=== PATIENT | male | born 1975 | race Caucasian/White ===

== ENCOUNTER 2016-05-01 04:28 | Emergency (ER) | payer OTHER ==
[2016-05-01 05:32] VITALS: BMI 36.6
[2016-05-01] MEDS ORDERED: FAMOTIDINE 20 MG/50 ML IVPB 50 ML IVPB ONE ×2 (05:56→06:02)
[2016-05-01] MEDS ORDERED: SODIUM CHLORIDE 0.9% 500 ML INFUS.BAG IV ONE ×2 (05:56→07:09)
--- NOTE | 2016-05-01 05:56 | PDOC ---
[id number] No Limitations - History of Present Illness Initial Comments: 05/01/16 05:56 The patient is a 40 year old male with no PMHx who presents to the ED with burning sensation in mid sternum and upper abdominal pain since yesterday. The patient reports the pain is intermittent, coming every 20 minutes and lasting a few minutes. He denies the pain radiating anywhere. He took something for acid relief, with some resolving symptoms. He also reports a nonproductive cough. He reports drinking a bottle of whiskey daily. He denies fever, chills, nausea, vomiting, diarrhea. He denies SOB, palpitations. <Emma Robbins - Last Filed: 05/01/16 05:56> <Siria Gibson - Last Filed: 05/02/16 15:46> - General Chief Complaint: Chest Pain Stated Complaint: CHEST PAIN, DIZZINESS Time Seen by Provider: 05/01/16 05:43 Past History <Emma Robbins - Last Filed: 05/01/16 05:56> - Psycho/Social/Smoking Cessation Hx Anxiety: No Suicidal Ideation: No Smoking History: Never smoked Information on smoking cessation initiated: No Hx Alcohol Use: Yes (1 bottle of whiskey everyday) Drug/Substance Use Hx: No Substance Use Type: Alcohol <Siria Gibson - Last Filed: 05/02/16 15:46> - Past Medical History Allergies/Adverse Reactions: Allergies Allergy/AdvReac Type Severity Reaction Status Date / Time No Known Allergies Allergy Verified 05/01/16 05:32 Home Medications: Ambulatory Orders Metformin HCl [Glucophage] 500 mg PO BID #60 tablet 05/01/16 Review of Systems - Review of Systems Comments:: 05/01/16 05:57 GENERAL/CONSTITUTIONAL: No fever or chills. No weakness. HEAD, EYES, EARS, NOSE AND THROAT: No change in vision. No ear pain or discharge. No sore throat. CARDIOVASCULAR: + mid sternal chest pain, No shortness of breath. RESPIRATORY: +nonproductive cough. No wheezing, or hemoptysis. GASTROINTESTINAL: +upper abdominal pain. No nausea, vomiting, diarrhea or constipation. GENITOURINARY: No dysuria, frequency, or change in urination. MUSCULOSKELETAL: No joint or muscle swelling or pain. No neck or back pain. SKIN: No rash NEUROLOGIC: No headache, vertigo, loss of consciousness, or change in strength/ sensation. ENDOCRINE: No increased thirst. No abnormal weight change. HEMATOLOGIC/LYMPHATIC: No anemia, easy bleeding, or history of blood clots. ALLERGIC/IMMUNOLOGIC: No hives or skin allergy. <Emma Robbins - Last Filed: 05/01/16 05:56> *Physical Exam - Vital Signs Last Vital Signs Temp Pulse Resp BP Pulse Ox 98.8 F 111 H 18 158/99 100 05/01/16 05:30 05/01/16 05:30 05/01/16 05:30 05/01/16 05:30 05/01/16 05:30 - Physical Exam Comments: 05/01/16 05:57 GENERAL: Awake, alert, and fully oriented, in no acute distress HEAD: No signs of trauma EYES: PERRLA, EOMI, sclera anicteric, conjunctiva clear ENT: Auricles normal inspection, hearing grossly normal, nares patent, oropharynx clear without exudates. Moist mucosa NECK: Normal ROM, supple, no lymphadenopathy, JVD, or masses LUNGS: Breath sounds equal, clear to auscultation bilaterally. No wheezes, and no crackles HEART: Regular rate and rhythm, normal S1 and S2, no murmurs, rubs or gallops ABDOMEN: Soft, nontender, normoactive bowel sounds. No guarding, no rebound. No masses EXTREMITIES: Normal range of motion, no edema. No clubbing or cyanosis. No cords, erythema, or tenderness NEUROLOGICAL: Cranial nerves II through XII grossly intact. Normal speech, normal gait SKIN: Warm, Dry, normal turgor, no rashes or lesions noted. <Emma Robbins - Last Filed: 05/01/16 05:56> - Vital Signs Last Vital Signs Temp Pulse Resp BP Pulse Ox 98.8 F 111 H 18 158/99 100 05/01/16 05:30 05/01/16 05:30 05/01/16 05:30 05/01/16 05:30 05/01/16 05:30 <Siria Gibson - Last Filed: 05/02/16 15:46> ED Treatment Course - LABORATORY CBC & Chemistry Diagram: 05/01/16 05:30 05/01/16 05:30 <Emma Robbins - Last Filed: 05/01/16 05:56> - LABORATORY CBC & Chemistry Diagram: 05/01/16 06:30 05/01/16 05:30 <Siria Gibson - Last Filed: 05/02/16 15:46> Medical Decision Making - Medical Decision Making 05/01/16 07:10 Pt came with CP that began this AM. It feels like a burning sensation mid- chest. He drinks heavily every day, a bottle of whiskey. Alcohol level in the ER is <5. Labs are normal, 1st cardiac enzyme is normal; lipase is normal. EKG shows tachycardia. Pt has diabetes. He is semi-aware of the DM, but takes no meds, and he and are indenial of the diagnosis. Pt hydrated with a L of saline; still tachycardic. He will receive another liter of NSS and 4U regular insulin push. Pt will require 2nd cardiac enzyme and a CXR is pending. He will be signed out to the day ER doc. <Siria Gibson - Last Filed: 05/02/16 15:46> *DC/Admit/Observation/Transfer - Attestations Scribe Attestion: 05/01/16 05:57 Documentation prepared by Emma Robbins, acting as medical office assistant instructor for Siria Gibson MD. <Emma Robbnis - Last Filed: 05/01/16 05:56> <Siria Gibson - Last Filed: 05/02/16 15:46> Diagnosis at time of Disposition: Chest pain, Diabetes mellitus, new onset - Discharge Dispostion Disposition: HOME Condition at time of disposition: Stable - Prescriptions Prescriptions: Metformin HCl [Glucophage] 500 mg PO BID #60 tablet - Patient Instructions Printed Discharge Instructions: DI for Atypical Chest Pain Additional Instructions: You have been evaluated for chest pain in the emergency department. The tests that we perform for your heart are negative however you still need to follow-up with your primary care physician within one week. You glucose is also elevated. You're given insulin and IV fluid for hydration. He will need to start taking Glucophage 500 mg 1 tablet twice per day in order to get your glucose under control. Once again, you need to follow-up with your primary care physician within one week for glucose monitoring, diet consultation and education and further diabetes care. Please return to the emergency department if your symptoms persist, worsen, or new symptoms arise.
[2016-05-01 06:05] LABS: ALBUMIN 4.2 g/dl (3.4-5.0); ANION GAP 12 (8-16); BILIRUBIN,TOTAL 0.5 mg/dL (0.2-1.0); CALCIUM 8.9 mg/dL (8.5-10.1); CO2 26 mmol/L (21-32); CREATININE 0.8 mg/dL (0.7-1.3); GLUCOSE,RANDOM 295 mg/dL (74-106); SGOT/AST 35 U/L (15-37); SGPT/ALT 63 U/L (12-78); TOT PROT 7.9 g/dl (6.4-8.2)
[2016-05-01 06:07] LABS: ALK PHOS 94 U/L (45-117); TROPONIN I < 0.02 ng/ml (0.00-0.05)
[2016-05-01 06:37] LABS: BASOPHIL 0.7 % (0-2.0); EOSINOPHIL 1.5 % (0-4.5); MCH 33.8 pg (25.7-33.7); MCHC 35.3 g/dl (32.0-35.9); MEAN CELL VOLUME 95.9 fl (80-96); MEAN PLT VOLUME 9.4 fl (7.5-11.1); NEUTROPHILS 61.6 % (42.8-82.8); PLATELET COUNT 175 K/MM3 (134-434); RDW 12.9 % (11.9-15.9); WHITE BLOOD COUNT 6.3 K/mm3 (4.0-10.0)
[2016-05-01] MEDS ORDERED: INSULIN REGULAR HUMAN 100 UNITS/ML *VIAL IVPUSH ONE (07:10)
[2016-05-01 07:41] VITALS: TEMP 98.2
[2016-05-01] MEDS ORDERED: INSULIN REGULAR HUMAN 100 UNITS/ML *VIAL ONE (08:00)
[2016-05-01 08:29] VITALS: BP 127/93; PULSE 96
[2016-05-01 11:56] LABS: TROPONIN I < 0.02 ng/ml (0.00-0.05)
--- NOTE | 2016-05-01 13:01 | PDOC ---
*Physical Exam - Vital Signs Last Vital Signs Temp Pulse Resp BP Pulse Ox 98.2 F 96 H 18 127/93 97 05/01/16 07:40 05/01/16 08:29 05/01/16 07:40 05/01/16 08:29 05/01/16 07:40 ED Treatment Course - LABORATORY CBC & Chemistry Diagram: 05/01/16 06:30 05/01/16 05:30 - ADDITIONAL ORDERS Additional order review: Laboratory Results 05/01/16 05/01/16 05/01/16 11:48 11:12 07:17 Sodium Potassium Chloride Carbon Dioxide Anion Gap BUN Creatinine Creat Clearance w eGFR POC Glucometer 199.93343 107.08779 Random Glucose Calcium Total Bilirubin AST ALT Alkaline Phosphatase Creatine Kinase 103 Troponin I < 0.02 Total Protein Albumin Lipase Alcohol, Quantitative 05/01/16 05/01/16 05/01/16 05:34 05:30 05:30 Sodium 135 L Potassium 4.2 Chloride 97 L Carbon Dioxide 26 Anion Gap 12 BUN 13 Creatinine 0.8 Creat Clearance w eGFR > 60 POC Glucometer Random Glucose 295 H Calcium 8.9 Total Bilirubin 0.5 AST 35 ALT 63 Alkaline Phosphatase 94 Creatine Kinase 125 Troponin I < 0.02 Total Protein 7.9 Albumin 4.2 Lipase 365 Alcohol, Quantitative < 5.0 05/01/16 05/01/16 05/01/16 11:48 07:17 06:30 RBC 4.84 MCV 95.9 MCHC 35.3 RDW 12.9 MPV 9.4 Neutrophils % 61.6 Lymphocytes % 26.4 Monocytes % 9.8 Eosinophils % 1.5 Basophils % 0.7 POC Glucometer 199.10443 107.43489 05/01/16 05:30 RBC Cancelled MCV Cancelled MCHC Cancelled RDW Cancelled MPV Cancelled Neutrophils % Cancelled Lymphocytes % Cancelled Monocytes % Cancelled Eosinophils % Cancelled Basophils % Cancelled POC Glucometer - Medications Given in the ED: ED Medications Discontinued Medications Generic Name Dose Route Start Last Admin Trade Name Freq PRN Reason Stop Dose Admin Famotidine/Sodium Chloride 50 mls @ 100 mls/hr 05/01/16 05:56 05/01/16 06:14 Pepcid 20 Mg Premixed Ivpb - IVPB 05/01/16 06:25 100 mls/hr ONCE ONE Administration Insulin Human Regular 4 units 05/01/16 07:10 05/01/16 08:03 Novolin R Vial *Ivpush / Er / Icu Only* IVPUSH 05/01/16 07:11 4 units ONCE ONE Administration Sodium Chloride 1,000 ml 05/01/16 05:56 05/01/16 06:14 Normal Saline - IV 05/01/16 05:57 1,000 ml ONCE ONE Administration Sodium Chloride 1,000 ml 05/01/16 07:09 05/01/16 08:03 Normal Saline - IV 05/01/16 07:10 1,000 ml ONCE ONE Administration Medical Decision Making - Medical Decision Making 05/01/16 12:58 This patient was endorsed to me at [address] Wong pending second set of cardiac enzymes and glycemic control. His cardiac enzymes were negative and his last glucose was 199. I've discussed the patient's diagnosis of diabetes with him and have advised him that I will be starting him on Glucotrol 5 500 mg twice daily and that he should follow-up with her primary care physician within one week. I've also advised the patient to return to the emergency department if he has recurrence of his symptoms the symptoms are any persistent symptoms. *DC/Admit/Observation/Transfer Diagnosis at time of Disposition: Chest pain, Diabetes mellitus, new onset - Discharge Dispostion Disposition: HOME Condition at time of disposition: Stable Admit: No - Prescriptions Prescriptions: Metformin HCl [Glucophage] 500 mg PO BID #60 tablet - Patient Instructions Printed Discharge Instructions: DI for Atypical Chest Pain Additional Instructions: You have been evaluated for chest pain in the emergency department. The tests that we perform for your heart are negative however you still need to follow-up with your primary care physician within one week. You glucose is also elevated. You're given insulin and IV fluid for hydration. He will need to start taking Glucophage 500 mg 1 tablet twice per day in order to get your glucose under control. Once again, you need to follow-up with your primary care physician within one week for glucose monitoring, diet consultation and education and further diabetes care. Please return to the emergency department if your symptoms persist, worsen, or new symptoms arise.
--- NOTE | 2016-05-01 16:13 | EKG ---
Test Reason : Blood Pressure : / mmHG Vent. Rate : 119 BPM Atrial Rate : 119 BPM P-R Int : 162 ms QRS Dur : 098 ms QT Int : 336 ms P-R-T Axes : 069 -17 007 degrees QTc Int : 472 ms SINUS TACHYCARDIA CANNOT RULE OUT ANTERIOR INFARCT , AGE UNDETERMINED ABNORMAL ECG WHEN COMPARED WITH ECG OF 18-JUL-2009 13:31, NO SIGNIFICANT CHANGE WAS FOUND Confirmed by CELE MAYS MD ([id number]) on 05/01/2016 4:13:26 PM Referred By: Confirmed By:CELE MAYS MD
== END 2016-05-01 13:29 | disposition home or self-care (01) ==
LOC: JER 04:28
PROC: 3E033GC Introduction of Other Therapeutic Substance into Peripheral Vein, Percutaneous Approach (ICD-10-PCS; principal; 2016-05-01)
PROC: 3E033VG Introduction of Insulin into Peripheral Vein, Percutaneous Approach (ICD-10-PCS; 2016-05-01)
DX: R07.89 Other chest pain (principal); E11.9 Type 2 diabetes mellitus without complications
CPT/HCPCS: 36415; 71020-TC; 80053; 80307; 82550; 83690; 84484; 85025; 93005; 93010; 99284-25

== ENCOUNTER 2016-07-30 14:37 | Emergency (ER) | payer OTHER ==
[2016-07-30 14:43] VITALS: BMI 35.2
--- NOTE | 2016-07-30 15:00 | PDOC ---
History of Present Illness - General History Source: Patient Exam Limitations: No Limitations - History of Present Illness Initial Comments: 07/30/16 16:25 The patient is a 41-year-old man, accompanied by his , with a past medical history of diabetes mellitus who presents to the emergency department via walk- in for further evaluation of shortness of breath for the past week. Vitals upon ER arrival are notable for tachycardia 129 bpm, febrile to 101.6, RR or 20, BP of 150/91 and an oxygen saturation of 98% on room air. Patient states that for the past week he has been feeling short of breath due to a short throat. He also reports a fever of 102 at home. His gave him 1 bottle of Children's Motrin with no relief. Patient admits he has had enlarged tonsils for the past few years and it has affected his shortness of breath throughout the years. Patient went to an urgent care center and had a strep culture taken. No known results. He has already been started on antibiotics. No other complaints. He denies chills generalized weakness, rhinorrhea, nasal congestion, ear pain, cough, palpitations, headache, abdominal pain, nausea, vomiting, diarrhea. <Marisela Adams - Last Filed: 07/30/16 17:08> <Tayo Mae - Last Filed: 07/30/16 17:46> - General Chief Complaint: Respiratory Stated Complaint: CHEST PAIN/ DIZZY Time Seen by Provider: 07/30/16 14:59 Past History <Marisela Adams - Last Filed: 07/30/16 17:08> - Past Medical History Diabetes: Yes - Psycho/Social/Smoking Cessation Hx Anxiety: No Suicidal Ideation: No Smoking History: Never smoked Hx Alcohol Use: Yes Drug/Substance Use Hx: No Substance Use Type: Alcohol <Tayo Mae - Last Filed: 07/30/16 17:46> - Past Medical History Allergies/Adverse Reactions: Allergies Allergy/AdvReac Type Severity Reaction Status Date / Time No Known Allergies Allergy Verified 07/30/16 14:40 Home Medications: Ambulatory Orders Metformin HCl [Glucophage] 500 mg PO BID #60 tablet 05/01/16 Azithromycin [Zithromax -] 250 mg PO DAILY #10 tab 07/30/16 Review of Systems - Review of Systems Able to Perform ROS?: Yes Comments:: 07/30/16 16:25 GENERAL/CONSTITUTIONAL: No fever or chills. No weakness. HEAD, EYES, EARS, NOSE AND THROAT: Yes: Sore throat. No change in vision. No ear pain or discharge. CARDIOVASCULAR: Yes: Shortness of Breath. No chest pain. RESPIRATORY: No cough, wheezing, or hemoptysis. GASTROINTESTINAL: No nausea, vomiting, diarrhea or constipation. GENITOURINARY: No dysuria, frequency, or change in urination. MUSCULOSKELETAL: No joint or muscle swelling or pain. No neck or back pain. SKIN: No rash NEUROLOGIC: No headache, vertigo, loss of consciousness, or change in strength/ sensation. ENDOCRINE: No increased thirst. No abnormal weight change. HEMATOLOGIC/LYMPHATIC: No anemia, easy bleeding, or history of blood clots. ALLERGIC/IMMUNOLOGIC: No hives or skin allergy. <Marisela Adams - Last Filed: 07/30/16 17:08> *Physical Exam - Vital Signs Last Vital Signs Temp Pulse Resp BP Pulse Ox 101.6 F H 129 H 20 150/91 98 07/30/16 14:39 07/30/16 14:39 07/30/16 14:39 07/30/16 14:39 07/30/16 14:39 - Physical Exam Comments: 07/30/16 16:26 GENERAL: Awake, alert, and fully oriented, in no acute distress HEAD: No signs of trauma EYES: PERRLA, EOMI, sclera anicteric, conjunctiva clear ENT: Auricles normal inspection, hearing grossly normal, nares patent, oropharynx clear without exudates. Moist mucosa NECK: Normal ROM, supple, no lymphadenopathy, JVD, or masses LUNGS: Breath sounds equal, clear to auscultation bilaterally. No wheezes, and no crackles HEART: Regular rate and rhythm, normal S1 and S2, no murmurs, rubs or gallops ABDOMEN: Soft, nontender, normoactive bowel sounds. No guarding, no rebound. No masses EXTREMITIES: Normal range of motion, no edema. No clubbing or cyanosis. No cords, erythema, or tenderness NEUROLOGICAL: Cranial nerves II through XII grossly intact. Normal speech, normal gait. <Marisela Adams - Last Filed: 07/30/16 17:08> - Vital Signs Last Vital Signs Temp Pulse Resp BP Pulse Ox 101.6 F H 129 H 20 150/91 98 07/30/16 14:39 07/30/16 14:39 07/30/16 14:39 07/30/16 14:39 07/30/16 14:39 <Tayo Mae - Last Filed: 07/30/16 17:46> ED Treatment Course - LABORATORY CBC & Chemistry Diagram: 07/30/16 15:50 07/30/16 15:50 - ADDITIONAL ORDERS Additional order review: Laboratory Results 07/30/16 15:50 INR 1.35 H 07/30/16 15:50 RBC 4.86 MCV 97.8 H MCHC 34.2 RDW 12.7 MPV 8.8 Neutrophils % 84.8 H D Lymphocytes % 6.3 L D Monocytes % 8.5 Eosinophils % 0.0 D Basophils % 0.4 - Medications Given in the ED: ED Medications Discontinued Medications Generic Name Dose Route Start Last Admin Trade Name Freq PRN Reason Stop Dose Admin Acetaminophen 1,000 mg 07/30/16 15:32 07/30/16 15:45 Ofirmev Injection - IVPB 07/30/16 15:33 1,000 mg ONCE ONE Administration Ondansetron HCl 8 mg 07/30/16 15:32 07/30/16 15:45 Zofran Injection IVPB 07/30/16 15:33 8 mg ONCE ONE Administration <Marisela Adams - Last Filed: 07/30/16 17:08> - LABORATORY CBC & Chemistry Diagram: 07/30/16 15:50 07/30/16 15:50 <Tayo Mae - Last Filed: 07/30/16 17:46> Medical Decision Making - Medical Decision Making 07/30/16 16:26 The patient is a 41-year-old man, accompanied by his , with a past medical history of diabetes mellitus who presents to the emergency department via walk- in for further evaluation of shortness of breath for the past week. Vitals upon ER arrival are notable for tachycardia 129 bpm, febrile to 101.6, RR or 20, BP of 150/91 and an oxygen saturation of 98% on room air. Patient states that for the past week he has been feeling short of breath due to a short throat. He also reports a fever of 102 at home. His gave him 1 bottle of Children's Motrin with no relief. Patient admits he has had enlarged tonsils for the past few years and it has affected his shortness of breath throughout the years. No other complaints. <Marisela Adams - Last Filed: 07/30/16 17:08> *DC/Admit/Observation/Transfer - Attestations Scribe Attestion: 07/30/16 16:26 Documentation prepared by Marisela Adams, acting as medical investigator for Tayo Mae DO. <Marisela Adams - Last Filed: 07/30/16 17:08> - Discharge Dispostion Admit: No - Attestations Physician Attestion: 07/30/16 15:00 I, Dr. Tayo Mae, attest that this document has been prepared under my direction and personally reviewed by me in its entirety. I further attest, that it accurately reflects all work, treatment, procedures and medical decision -making performed by me. <Tayo Mae - Last Filed: 07/30/16 17:46> Diagnosis at time of Disposition: Tonsillitis - Discharge Dispostion Disposition: HOME Condition at time of disposition: Good - Prescriptions Prescriptions: Azithromycin [Zithromax -] 250 mg PO DAILY #10 tab - Referrals Referrals: STAFF,NOT ON [Primary Care Provider] - - Patient Instructions Printed Discharge Instructions: DI for Pharyngitis/Tonsillopharyngitis -- Adult Additional Instructions: Yunior- It was a pleasure to care for you. Take tylenol and motrin for fever, Gargle with salt water. Return to us if you have any problems. Best- Dr. Tayo Mea
[2016-07-30] MEDS ORDERED: ONDANSETRON 4 MG/2 ML VIAL IVPB ONE (15:32)
[2016-07-30] MEDS ORDERED: SODIUM CHLORIDE 2,000 ML IV STA (15:32)
[2016-07-30] MEDS ORDERED: ACETAMINOPHEN 1000 MG/100 ML VIAL (NON FORMULARY) IVPB ONE (15:32)
[2016-07-30] MEDS ORDERED: ONDANSETRON 4 MG/2 ML VIAL ONE (15:50)
[2016-07-30 15:59] LABS: BASOPHIL 0.4 % (0-2.0); MCH 33.5 pg (25.7-33.7); MCHC 34.2 g/dl (32.0-35.9); MEAN CELL VOLUME 97.8 fl (80-96); MEAN PLT VOLUME 8.8 fl (7.5-11.1); NEUTROPHILS 84.8 % (42.8-82.8); PLATELET COUNT 130 K/MM3 (134-434); RDW 12.7 % (11.9-15.9)
[2016-07-30 16:11] LABS: INR 1.35 (0.82-1.09); PROTHROMBIN TIME (PATIENT) 14.9 SEC (9.98-11.88)
[2016-07-30 16:34] LABS: ALBUMIN 4.3 g/dl (3.4-5.0); ANION GAP 11 (8-16); BILIRUBIN,TOTAL 1.2 mg/dL (0.2-1.0); CALCIUM 9.3 mg/dL (8.5-10.1); CO2 27 mmol/L (21-32); COCKROFT - GAULT 202.69; CREATININE 0.8 mg/dL (0.7-1.3); GLUCOSE,RANDOM 252 mg/dL (74-106); SGOT/AST 47 U/L (15-37); SGPT/ALT 54 U/L (12-78); TOT PROT 8.5 g/dl (6.4-8.2)
[2016-07-30 16:35] LABS: ALK PHOS 93 U/L (45-117)
[2016-07-30] MEDS ORDERED: methylPREDNISolone NA SUCC 125 MG/2 ML VIAL IVPB ONE (17:37)
[2016-07-30] MEDS ORDERED: methylPREDNISolone NA SUCC 125 MG/2 ML VIAL ONE (18:01)
[2016-07-30] MEDS ORDERED: IBUPROFEN 600 MG TABLET (FP) PO ONE ×2 (18:43→18:52)
[2016-07-30] MEDS ORDERED: IBUPROFEN 400 MG TABLET (FP) PO ONE (18:50)
[2016-07-30 19:42] VITALS: BP 139/76; PULSE 105; TEMP 101.6
== END 2016-07-30 19:00 | disposition home or self-care (01) ==
LOC: JER 14:37 → SUPCPDRO 14:37 → JER 19:00
DX: J03.90 Acute tonsillitis, unspecified (principal); E11.9 Type 2 diabetes mellitus without complications; Z79.84 Long term (current) use of oral hypoglycemic drugs
CPT/HCPCS: 36415; 80053; 83605; 85025; 85610; 99282-25

== ENCOUNTER 2017-02-24 14:21 | Inpatient (IN) | payer OTHER ==
--- NOTE | 2017-02-24 15:39 | PDOC ---
Attending Attestation - Resident Resident Name: Jorge Lorenz - ED Attending Attestation I have performed the following: I have examined & evaluated the patient, The case was reviewed & discussed with the resident, I agree w/resident's findings & plan, Exceptions are as noted - HPI HPI: 41 yo M history HTN (nonadherent to med regimen) presents with R facial droop since 6am. He states that he had an unusual sensation in his face, then had difficulty moving his lower lip. He is able to fully close his eye and move his forehead. No speech changes. No weakness or numbness anywhere else in his body. - Physicial Exam PE: GENERAL: Awake, alert, and fully oriented, in no acute distress HEAD: No signs of trauma EYES: PERRLA, EOMI, sclera anicteric, conjunctiva clear ENT: Auricles normal inspection, hearing grossly normal, nares patent, oropharynx clear without exudates. Moist mucosa NECK: Normal ROM, supple, no lymphadenopathy, JVD, or masses LUNGS: Breath sounds equal, clear to auscultation bilaterally. No wheezes, and no crackles HEART: Regular rate and rhythm, normal S1 and S2, no murmurs, rubs or gallops ABDOMEN: Soft, nontender, normoactive bowel sounds. No guarding, no rebound. No masses EXTREMITIES: Normal range of motion, no edema. No clubbing or cyanosis. No cords, erythema, or tenderness NEUROLOGICAL: +Slight paralysis to the R lower lip. Sensation intact. Forehead movement intact. Remainder of CN intact. Strength and sensation intact to extremities. Gait stable. SKIN: Warm, Dry, normal turgor, no rashes or lesions noted. - Medical Decision Making 02/24/17 17:03 Pt returned from MRI, refused MRI due to anxiety in the machine. I offered medication for anxiolysis, but he continued to decline the test. We discussed that it is the best test for CVA, however, he does not want to try medication and retry the test. Can discuss with neuro in AM. NIH Stroke Scale - Last Known Well Date/Time & Onset Date Last Known Well: 02/24/17 Time Last Known Well: 06:00 - Initial Evaluation Level of consciousness: Alert Ask patient the month and their age: Answers both correctly Ask patient to open & close eyes; make fist and let go: Obeys both correctly Best gaze (horizontal eye movement): Normal Visual field testing: No visual field loss Facial paresis (Show teeth/raise eyebrows/close eyes tight): Minor paralysis ( flattened nasolabial fold, asymmetry on smiling) Motor Function: Left Arm: Normal Motor Function: Right Arm: Normal (extends arm 90 (or 45) degrees for 10 seconds without drift Motor Function: Left Leg: Normal (extends leg 30 degrees for 5 seconds without drift) Motor Function: Right Leg: Normal (extends leg 30 degrees for 5 seconds without drift) Limb Ataxia: No ataxia Sensory(Use pinprick test arms,legs,trunk,face/side to side): Normal Best language (Describe picture, name items, read sentences): No Aphasia Dysarthria (read several words): Normal articulation Extinction and Inattention: No abnormality - Total Score NIH Stroke Scale Score: 1
[2017-02-24] MEDS ORDERED: ENALAPRIL MALEATE 10 MG TABLET (FP) PO SCH (16:00)
[2017-02-24] MEDS ORDERED: ENALAPRIL MALEATE 5 MG TABLET (FP) ONE (16:11)
--- NOTE | 2017-02-24 16:11 | PDOC ---
History of Present Illness - General Chief Complaint: CVA/TIA Stated Complaint: FACE NUMB Time Seen by Provider: 02/24/17 14:54 History Source: Patient - History of Present Illness Initial Comments: 02/24/17 16:09 41m with hx of diabetes on metformin and untreated hypertension presents with right facial palsy since this morning at 6 am. Limited to lower face/mouth. Similar episode 20 years ago while swimming which lasted 3 months. Sensation intact. No focal deficit. 02/24/17 21:20 02/24/17 21:21 Past History - Past Medical History Allergies/Adverse Reactions: Allergies Allergy/AdvReac Type Severity Reaction Status Date / Time No Known Allergies Allergy Verified 02/24/17 14:26 Home Medications: Ambulatory Orders Metformin HCl [Glucophage] 500 mg PO BID #60 tablet 05/01/16 Enalapril Maleate [Vasotec -] 10 mg PO DAILY 02/24/17 COPD: No Diabetes: Yes HTN: Yes - Suicide/Smoking/Psychosocial Hx Smoking History: Never smoked Have you smoked in the past 12 months: No Information on smoking cessation initiated: No Hx Alcohol Use: Yes (daily) Drug/Substance Use Hx: No Substance Use Type: Alcohol Review of Systems - Review of Systems Able to Perform ROS?: Yes Constitutional: No: Symptoms Reported HEENTM: Yes: See HPI Respiratory: No: Symptoms reported Cardiac (ROS): No: Symptoms Reported ABD/GI: No: Symptoms Reported : No: Symptoms Reported Musculoskeletal: No: Symptoms Reported Integumentary: No: Symptoms Reported Neurological: No: Symptoms reported *Physical Exam - Vital Signs Last Vital Signs Temp Pulse Resp BP Pulse Ox 98.0 F 68 18 183/112 96 02/24/17 14:28 02/24/17 15:20 02/24/17 15:20 02/24/17 15:20 02/24/17 15:20 - Physical Exam General Appearance: Yes: Nourished, Appropriately Dressed. No: Apparent Distress HEENT: positive: EOMI, LINDSAY, Normal ENT Inspection. negative: Symmetrical Neck: negative: Tender Respiratory/Chest: positive: Lungs Clear, Normal Breath Sounds. negative: Chest Tender Cardiovascular: positive: Regular Rhythm, Regular Rate, S1, S2 Vascular Pulses: Dorsalis-Pedis (R): 2+, Doralis-Pedis (L): 2+ Gastrointestinal/Abdominal: positive: Normal Bowel Sounds, Protuberent. negative: Tender Neurologic: negative: Facial Droop (forehead sparring, lower mouth palsy) NIH Stroke Scale - Last Known Well Date/Time & Onset Date Last Known Well: 02/24/17 Time Last Known Well: 05:00 - Initial Evaluation Level of consciousness: Alert Ask patient the month and their age: Answers both correctly Ask patient to open & close eyes; make fist and let go: Obeys both correctly Best gaze (horizontal eye movement): Normal Visual field testing: No visual field loss Facial paresis (Show teeth/raise eyebrows/close eyes tight): Partial paralysis ( total or near paralysis of lower face) Motor Function: Left Arm: Normal Motor Function: Right Arm: Normal (extends arm 90 (or 45) degrees for 10 seconds without drift Motor Function: Left Leg: Normal (extends leg 30 degrees for 5 seconds without drift) Motor Function: Right Leg: Normal (extends leg 30 degrees for 5 seconds without drift) Limb Ataxia: No ataxia Sensory(Use pinprick test arms,legs,trunk,face/side to side): Normal Best language (Describe picture, name items, read sentences): No Aphasia Dysarthria (read several words): Normal articulation Extinction and Inattention: No abnormality - Total Score NIH Stroke Scale Score: 2 Critical Care Time/MDM Note - Medical Decision Making Note: 02/24/17 21:24 41M with htn and dm2 presents with lower face paralysis Forhead sparring indicated possible central nervous defect Consulted with Dr. Vance in Neurology. If Ct head negative, this is likely atypical Ramona Palsy. 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
[2017-02-24 16:23] LABS: BASO % 0.7 % (0-2.0); EOS % 1.3 % (0-4.5); MCH 34.1 pg (25.7-33.7); MCHC 34.9 g/dl (32.0-35.9); MEAN CELL VOLUME 97.7 fl (80-96); MEAN PLT VOLUME 9.3 fl (7.5-11.1); NEUT % 63.6 % (42.8-82.8); PLATELET COUNT 167 K/MM3 (134-434); RDW 12.8 % (11.9-15.9); WHITE BLOOD COUNT 6.5 K/mm3 (4.0-10.0)
[2017-02-24 16:24] LABS: URINE APPEARANCE SLCLOUDY; URINE BILIRUBIN NEGATIVE (NEGATIVE); URINE BLOOD NEGATIVE (NEGATIVE); URINE COLOR YELLOW; URINE GLUCOSE (UA) 1+ (NEGATIVE); URINE KETONE TRACE (NEGATIVE); URINE LEUK ESTERASE NEGATIVE (NEGATIVE); URINE NITRITE NEGATIVE (NEGATIVE); URINE PROTEIN NEGATIVE (NEGATIVE); URINE UROBILINOGEN NEGATIVE mg/dL (0.2-1.0)
[2017-02-24 16:35] LABS: INR 1.06 (0.82-1.09)
[2017-02-24 16:42] LABS: ALBUMIN 4.4 g/dl (3.4-5.0); ALK PHOS 87 U/L (45-117); ANION GAP 10 (8-16); BILIRUBIN,TOTAL 0.8 mg/dL (0.2-1.0); CALCIUM 10.1 mg/dL (8.5-10.1); CO2 30 mmol/L (21-32); CREATININE 0.8 mg/dL (0.7-1.3); GLUCOSE,RANDOM 210 mg/dL (74-106); SGOT/AST 87 U/L (15-37); SGPT/ALT 83 U/L (12-78); TOT PROT 8.5 g/dl (6.4-8.2)
[2017-02-24 16:43] LABS: CHOLESTEROL 257 mg/dL (50-200); CPK 205 IU/L (39-308)
[2017-02-24 16:44] LABS: TROPONIN I < 0.02 ng/ml (0.00-0.05)
[2017-02-24] MEDS ORDERED: ATORVASTATIN CA 40 MG TABLET (FP) PO ONE (18:00)
--- NOTE | 2017-02-24 18:01 | HP ---
CHIEF COMPLAINT: Right facial palsy PCP: HISTORY OF PRESENT ILLNESS: Patient is a 41 year old male with a significant past medical history of ETOH abuse, diabetes mellitus and uncontrolled hypertension. Patient arrived to the ED with right facial palsy since this morning at 0600. His and patient also report that patient drinks approximately "a bottle of whisky" per day and sometimes more. states that patient drinks all day and often gets drunk daily. He denies any seizures and denies any symptoms of withdrawal at this time, minor anxiety on exam, but no tremors, headaches or hallucinations. Will start patient on Librium 50mg q6 PRN, banana bag and monitor for any withdrawal symptoms. Ativan will be provided PRN. ETOH levels ordered and pending. ER course was notable for: (1) uncontrolled hypertension: 180/100s (2) Negative head CT (3) elevated lipid panel > started on lipitor (4) right facial palsy, denies numbness (5) Given ASA 81mg in ER, continue daily (6) banana bag x 1 (7) CIWA score 1, monitor q6 Recent Travel: PAST MEDICAL HISTORY: ETOH abuse, diabetes mellitus and uncontrolled hypertension. PAST SURGICAL HISTORY: Social History: Smoking: denies Alcohol: current ETOH abuse Drugs: denies Family History: Allergies No Known Allergies Allergy (Verified 02/24/17 14:26) HOME MEDICATIONS: Home Medications Medication Instructions Recorded Metformin HCl [Glucophage] 500 mg PO BID #60 tablet 05/01/16 Enalapril Maleate [Vasotec -] 10 mg PO DAILY 02/24/17 REVIEW OF SYSTEMS CONSTITUTIONAL: Absent: fever, chills, diaphoresis, generalized weakness, malaise, loss of appetite, weight change HEENT: Absent: rhinorrhea, nasal congestion, throat pain, throat swelling, difficulty swallowing, mouth swelling, ear pain, eye pain, visual changes CARDIOVASCULAR: Absent: chest pain, syncope, palpitations, irregular heart rate, lightheadedness , peripheral edema RESPIRATORY: Absent: cough, shortness of breath, dyspnea with exertion, orthopnea, wheezing, stridor, hemoptysis GASTROINTESTINAL: Absent: abdominal pain, abdominal distension, nausea, vomiting, diarrhea, constipation, melena, hematochezia GENITOURINARY: Absent: dysuria, frequency, urgency, hesitancy, hematuria, flank pain, genital pain MUSCULOSKELETAL: Absent: myalgia, arthralgia, joint swelling, back pain, neck pain SKIN: Absent: rash, itching, pallor HEMATOLOGIC/IMMUNOLOGIC: Absent: easy bleeding, easy bruising, lymphadenopathy, frequent infections ENDOCRINE: Absent: unexplained weight gain, unexplained weight loss, heat intolerance, cold intolerance NEUROLOGIC: Absent: headache, focal weakness or paresthesias, dizziness, unsteady gait, seizure, mental status changes, bladder or bowel incontinence PSYCHIATRIC: Absent: depression, suicidal or homicidal ideation, hallucinations. PHYSICAL EXAMINATION Vital Signs - 24 hr 02/24/17 02/24/17 14:28 15:20 Temperature 98.0 F Pulse Rate 102 H Pulse Rate [ 68 Left Apical] Respiratory 18 18 Rate Blood Pressure 192/116 Blood Pressure 183/112 [Left Arm] O2 Sat by Pulse 100 96 Oximetry (%) GENERAL: Awake, alert, and fully oriented, in no acute distress. HEAD: Right facial palsy, no numbness on exam EYES: Pupils equal, round and reactive to light, extraocular movements intact, sclera anicteric, conjunctiva clear. No lid lag. EARS, NOSE, THROAT: Ears normal, nares patent, oropharynx clear without exudates. Moist mucous membranes. NECK: Normal range of motion, supple without lymphadenopathy, JVD, or masses. LUNGS: Breath sounds equal, clear to auscultation bilaterally. No wheezes, and no crackles. No accessory muscle use. HEART: Regular rate and rhythm, normal S1 and S2 without murmur, rub or gallop. ABDOMEN: Soft, nontender, not distended, normoactive bowel sounds, no guarding, no rebound, no masses. No hepatomegaly or splenomegaly. MUSCULOSKELETAL: Normal range of motion at all joints. No bony deformities or tenderness. No CVA tenderness. UPPER EXTREMITIES: 2+ pulses, warm, well-perfused. No cyanosis. No clubbing. No peripheral edema. LOWER EXTREMITIES: 2+ pulses, warm, well-perfused. No calf tenderness. No peripheral edema. NEUROLOGICAL: Cranial nerves II-XII intact. Normal speech. Normal gait. PSYCHIATRIC: Cooperative. Good eye contact. Appropriate mood and affect. SKIN: Warm, dry, normal turgor, no rashes or lesions noted, normal capillary refill. Laboratory Results - last 24 hr 02/24/17 02/24/17 02/24/17 15:42 15:42 15:42 WBC 6.5 D RBC 4.77 Hgb 16.3 Hct 46.6 MCV 97.7 H MCH 34.1 H MCHC 34.9 RDW 12.8 Plt Count 167 D MPV 9.3 Neutrophils % 63.6 D Lymphocytes % 25.6 D Monocytes % 8.8 Eosinophils % 1.3 D Basophils % 0.7 PT with INR INR Sodium 134 L Potassium 4.0 Chloride 94 L Carbon Dioxide 30 Anion Gap 10 BUN 12 Creatinine 0.8 Creat Clearance w eGFR > 60 Random Glucose 210 H Calcium 10.1 Total Bilirubin 0.8 D AST 87 H D ALT 83 H D Alkaline Phosphatase 87 Creatine Kinase Creatine Kinase Index CK-MB (CK-2) Troponin I Total Protein 8.5 H Albumin 4.4 Triglycerides Cholesterol Total LDL Cholesterol HDL Cholesterol Urine Color Yellow Urine Appearance Slcloudy Urine pH 7.0 Ur Specific [place] 1.008 Urine Protein Negative Urine Glucose (UA) 1+ H Urine Ketones Trace H Urine Blood Negative Urine Nitrite Negative Urine Bilirubin Negative Urine Urobilinogen Negative 02/24/17 02/24/17 15:42 15:42 WBC RBC Hgb Hct MCV MCH MCHC RDW Plt Count MPV Neutrophils % Lymphocytes % Monocytes % Eosinophils % Basophils % PT with INR 12.00 H INR 1.06 Sodium Potassium Chloride Carbon Dioxide Anion Gap BUN Creatinine Creat Clearance w eGFR Random Glucose Calcium Total Bilirubin AST ALT Alkaline Phosphatase Creatine Kinase 205 Creatine Kinase Index 1.4 CK-MB (CK-2) 3.008 Troponin I < 0.02 Total Protein Albumin Triglycerides 320 H Cholesterol 257 H Total LDL Cholesterol 151 H HDL Cholesterol 46 Urine Color Urine Appearance Urine pH Ur Specific [place] Urine Protein Urine Glucose (UA) Urine Ketones Urine Blood Urine Nitrite Urine Bilirubin Urine Urobilinogen ASSESSMENT/PLAN: Patient is a 41 year old male with a significant past medical history of ETOH abuse, diabetes mellitus and uncontrolled hypertension. Patient arrived to the ED with right facial palsy since this morning at 0600. His and patient also report that patient drinks approximately "a bottle of whisky" per day and sometimes more. states that patient drinks all day and often gets drunk daily. He denies any seizures and denies any symptoms of withdrawal at this time, minor anxiety on exam, but no tremors, headaches or hallucinations. Will start patient on Librium 50mg q6 PRN, banana bag and monitor for any withdrawal symptoms. Ativan will be provided PRN. ETOH levels ordered and pending. Patient also has uncontrolled hypertension, however, he admits to non compliance of home medications. Will start patient on his home meds and monitor. Neurology: Right Facial Palsy, acute Patient denies any right facial numbness at this time, denies any visual defects CT scan negative, pt refused MRI secondary to feeling claustrophobic, refusing sedative to help him tolerate test Will offer MRI again in a.m. Started on ASA 81mg daily Started on Lipitor for elevated lipid levels Dysphagia diet until seen by speech and swallow Neuro consulted and following Cardiology: Hypertension, uncontrolled Denies chest pain or shortness of breath Patient admits to medication no compliance - does not take home Vasotec-spoke to pt about importance of controlling his BP Patient and verbalized understanding and in agreement to continue to take BP meds on d/c On Vasotec 10mg daily Consider cardiology consult if elevated BP continues, if not will need cardiology followup outpatient EKG with NSR Psyche: ETOH Abuse Drinks apx 1 bottle of whisky per day, pt denies problems with alcohol and can "stop anytime" Doubt that patient will comply with 3 days of librium at this time and he is not in acute w/drawal Librium 50mg prn, Ativan 1mg for any seizure activity Minor anxiety on exam, CIWA score low but needs close monitoring Banana bag x 1 Monitor for withdrawal seizures F.E.N. Fluids: banana bag x 1 Electrolytes: monitor Nutrition: low sodium diet Prophylaxis: DVT: ambulatory, SCDs GI: deferred Disposition. OBS. full code Visit type - Emergency Visit Emergency Visit: Yes ED Registration Date: 02/24/17 Care time: The patient presented to the Emergency Department on the above date and was hospitalized for further evaluation of their emergent condition. - New Patient This patient is new to me today: Yes Date on this admission: 02/24/17 - Critical Care Critical Care patient: No
[2017-02-24] MEDS ORDERED: ATORVASTATIN CA 40 MG TABLET (FP) ONE (18:05)
[2017-02-24] MEDS ORDERED: FOLIC ACID INJECTION - 1 MG, THIAMINE HCL 100 MG, MULTIVIT INJECTION ADULT 10 ML in SOD... IVPB ONE (18:32)
[2017-02-24] MEDS ORDERED: chlordiazePOXIDE HCL 25 MG CAPSULE PO PRN (18:35)
[2017-02-24] MEDS: ASPIRIN COATED 81 MG TABLET.EC PO SCH (18:37)
[2017-02-24] MEDS ORDERED: ASPIRIN 81 MG CHEWABLE TABLETS ONE (18:45)
[2017-02-24] MEDS ORDERED: LORazepam 2 MG/ML SDV VIAL IVPUSH PRN (18:48)
[2017-02-24] MEDS: INSULIN SLIDING SCALE (NOVOLOG) 1 VIAL SQ SCH (22:24)
[2017-02-25 00:04] LABS: URINE LEUK ESTERASE Negative (NEGATIVE)
[2017-02-25 00:06] VITALS: BMI 36.7
[2017-02-25] MEDS: INSULIN SLIDING SCALE (NOVOLOG) 1 VIAL SQ SCH ×4 (06:29→23:00)
[2017-02-25 08:43] LABS: MCH 33.8 pg (25.7-33.7); MCHC 34.4 g/dl (32.0-35.9); MEAN CELL VOLUME 98.4 fl (80-96); MEAN PLT VOLUME 9.1 fl (7.5-11.1); PLATELET COUNT 154 K/MM3 (134-434); RDW 12.6 % (11.9-15.9)
[2017-02-25 09:08] LABS: ALBUMIN 3.9 g/dl (3.4-5.0); ANION GAP 8 (8-16); BILIRUBIN,TOTAL 1.2 mg/dL (0.2-1.0); CALCIUM 8.4 mg/dL (8.5-10.1); CO2 27 mmol/L (21-32); CREATININE 0.7 mg/dL (0.7-1.3); GLUCOSE,RANDOM 219 mg/dL (74-106); MAGNESIUM 2.3 mg/dL (1.8-2.4); SGOT/AST 79 U/L (15-37); SGPT/ALT 82 U/L (12-78)
[2017-02-25 09:09] LABS: ALK PHOS 78 U/L (45-117); TOT PROT 7.7 g/dl (6.4-8.2)
[2017-02-25] MEDS: FOLIC ACID 1 MG TABLET (FP) PO SCH (10:12)
[2017-02-25] MEDS: ASPIRIN COATED 81 MG TABLET.EC PO SCH (10:12)
[2017-02-25] MEDS: ENALAPRIL MALEATE 10 MG TABLET (FP) PO SCH (10:13)
[2017-02-25] MEDS: THIAMINE HCL 100 MG TABLET (FP) PO SCH (10:14)
--- NOTE | 2017-02-25 10:52 | PN ---
Progress Note, Physician History of Present Illness: pt seen/ examined. chart reviewed comfortable. sitting in chair at bedside pt admits drinks heavy on daily basis also says last drink four days ago. says sometimes stops denies any headache/ dizziness - Current Medication List Current Medications: Active Medications Aspirin (Ecotrin -) 81 mg PO DAILY [facility] Last Admin: 02/25/17 10:12 Dose: 81 mg Atorvastatin Calcium (Lipitor -) 40 mg PO HS [place] Chlordiazepoxide HCl (Librium -) 50 mg PO Q6H PRN PRN Reason: etoh withdrawal Enalapril Maleate (Vasotec -) 10 mg PO DAILY [facility] Last Admin: 02/25/17 10:13 Dose: 10 mg Folic Acid (Folic Acid -) 1 mg PO DAILY [facility] Last Admin: 02/25/17 10:12 Dose: 1 mg Insulin Aspart (Novolog Vial Sliding Scale -) 1 vial SQ ACHS [place] PRN Reason: Protocol Last Admin: 02/25/17 06:29 Dose: 4 units Lorazepam (Ativan Injection -) 1 mg IVPUSH Q6H PRN PRN Reason: ANXIETY Thiamine HCl (Vitamin B1 -) 100 mg PO DAILY [facility] Last Admin: 02/25/17 10:14 Dose: 100 mg - Objective Vital Signs: Vital Signs Temperature 98.1 F 02/25/17 06:30 Pulse Rate 63 02/25/17 06:30 Respiratory Rate 20 02/25/17 06:30 Blood Pressure 112/77 02/25/17 06:30 O2 Sat by Pulse Oximetry (%) 97 02/24/17 22:00 Constitutional: Yes: No Distress, Calm, Obese Eyes: Yes: Conjunctiva Clear, Other (no icterus) Neck: Yes: Supple Cardiovascular: Yes: Regular Rate and Rhythm Respiratory: Yes: CTA Bilaterally Gastrointestinal: Yes: Normal Bowel Sounds, Soft Edema: No Neurological: Yes: Alert, Other (no shaking/ right facial weakness-- able to close eyes.) Psychiatric: Yes: Alert Labs: CBC, BMP 02/25/17 07:55 02/25/17 07:55 INR, PTT INR 1.06 (0.82-1.09) 02/24/17 15:42 - ....Imaging Cat Scan: Report Reviewed Problem List - Problems (1) Accelerated essential hypertension Code(s): I10 - ESSENTIAL (PRIMARY) HYPERTENSION (2) Diabetes Code(s): E11.9 - TYPE 2 DIABETES MELLITUS WITHOUT COMPLICATIONS (3) Obesity Code(s): E66.9 - OBESITY, UNSPECIFIED (4) Alcohol abuse Code(s): F10.10 - ALCOHOL ABUSE, UNCOMPLICATED (5) Elevated liver enzymes Code(s): R74.8 - ABNORMAL LEVELS OF OTHER SERUM ENZYMES (6) Hyperlipidemia Code(s): E78.5 - HYPERLIPIDEMIA, UNSPECIFIED (7) Facial palsy Code(s): G51.0 - HEATH'S PALSY (8) Right-sided Heath's palsy Code(s): G51.0 - HEATH'S PALSY Assessment/Plan discussed in detail with pt / counselled about alcohol cessation. advised he should go for rehab. librium prn- pt not shaking/ monitor bgm/ bp. u/s liver hold statin for elevated lfts u/s liver add basal insulin' check fasting lipid profile/ hepatitis profile discussed in detail with pt pt spend in examining/ counselling 35 min. will follow pt also refuses to take prednisone discussed with neuro also.- will follow
--- NOTE | 2017-02-25 12:35 | CONSULT ---
Consult - text type - Consultation Consultation Note: Neurology CHIEF COMPLAINT: Right facial palsy HISTORY OF PRESENT ILLNESS: Patient is a 41 year old male with a significant past medical history of ETOH abuse, diabetes mellitus and uncontrolled hypertension. Patient arrived to the ED with right facial palsy. His and patient also report that patient drinks approximately "a bottle of whisky" per day and sometimes more. stated that patient drinks all day and often gets drunk daily. He denies any seizures and denies any symptoms of withdrawal at this time, minor anxiety on exam, but no tremors, headaches or hallucinations. Patient completed CT head which did not show acute changes. Patient ordered for MRI brain but states he gets claustraphobic and isn't agreeing to sedative. Would like to rule out CVA and discussed repeat CT and patient and agreed. Patient also had uncontrolled hypertension with 180/100s on presentation. Lipitor also started for hyperlipidemia. 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 Discussed using eye patch. Maintain moisture to avoid corneal abrasion. Discussed steroid course and patient hesitant due to history of DM. PAST MEDICAL HISTORY: ETOH abuse, diabetes mellitus and uncontrolled hypertension. PAST SURGICAL HISTORY: Social History: Smoking: denies Alcohol: current ETOH abuse Drugs: denies Family History: Allergies No Known Allergies Allergy (Verified 02/24/17 14:26) HOME MEDICATIONS: Home Medications Medication Instructions Recorded Metformin HCl [Glucophage] 500 mg PO BID #60 tablet 05/01/16 Enalapril Maleate [Vasotec -] 10 mg PO DAILY 02/24/17 REVIEW OF SYSTEMS CONSTITUTIONAL: Absent: fever, chills, diaphoresis, generalized weakness, malaise, loss of appetite, weight change HEENT: Absent: rhinorrhea, nasal congestion, throat pain, throat swelling, difficulty swallowing, mouth swelling, ear pain, eye pain, visual changes CARDIOVASCULAR: Absent: chest pain, syncope, palpitations, irregular heart rate, lightheadedness , peripheral edema RESPIRATORY: Absent: cough, shortness of breath, dyspnea with exertion, orthopnea, wheezing, stridor, hemoptysis GASTROINTESTINAL: Absent: abdominal pain, abdominal distension, nausea, vomiting, diarrhea, constipation, melena, hematochezia GENITOURINARY: Absent: dysuria, frequency, urgency, hesitancy, hematuria, flank pain, genital pain MUSCULOSKELETAL: Absent: myalgia, arthralgia, joint swelling, back pain, neck pain SKIN: Absent: rash, itching, pallor HEMATOLOGIC/IMMUNOLOGIC: Absent: easy bleeding, easy bruising, lymphadenopathy, frequent infections ENDOCRINE: Absent: unexplained weight gain, unexplained weight loss, heat intolerance, cold intolerance NEUROLOGIC: Absent: headache, focal weakness or paresthesias, dizziness, unsteady gait, seizure, mental status changes, bladder or bowel incontinence PSYCHIATRIC: Absent: depression, suicidal or homicidal ideation, hallucinations. PHYSICAL EXAMINATION Vital Signs Period Temp Pulse Resp BP Sys/[place] Pulse Ox Last 24 Hr 98.0 F-99.0 F 63-102 18-20 112-192/77-116 95-100 GENERAL: Awake, alert, and fully oriented, in no acute distress. HEAD: Right facial palsy, no numbness on exam EYES: Pupils equal, round and reactive to light, extraocular movements intact, sclera anicteric, conjunctiva clear. No lid lag. EARS, NOSE, THROAT: Ears normal, nares patent, oropharynx clear without exudates. Moist mucous membranes. NECK: Normal range of motion, supple without lymphadenopathy, JVD, or masses. LUNGS: Breath sounds equal, clear to auscultation bilaterally. No wheezes, and no crackles. No accessory muscle use. HEART: Regular rate and rhythm, normal S1 and S2 without murmur, rub or gallop. ABDOMEN: Soft, nontender, not distended, normoactive bowel sounds, no guarding, no rebound, no masses. No hepatomegaly or splenomegaly. MUSCULOSKELETAL: Normal range of motion at all joints. No bony deformities or tenderness. No CVA tenderness. UPPER EXTREMITIES: 2+ pulses, warm, well-perfused. No cyanosis. No clubbing. No peripheral edema. LOWER EXTREMITIES: 2+ pulses, warm, well-perfused. No calf tenderness. No peripheral edema. NEUROLOGICAL: R facial palsy, otherwise CN intact, sensory normal, strenght normal PSYCHIATRIC: Cooperative. Good eye contact. Appropriate mood and affect. SKIN: Warm, dry, normal turgor, no rashes or lesions noted, normal capillary refill. CBCD WBC 6.0 K/mm3 (4.0-10.0) 02/25/17 07:55 RBC 4.85 M/mm3 (4.00-5.60) 02/25/17 07:55 Hgb 16.4 GM/dL (11.7-16.9) 02/25/17 07:55 Hct 47.8 % (35.4-49) 02/25/17 07:55 MCV 98.4 fl (80-96) H 02/25/17 07:55 MCHC 34.4 g/dl (32.0-35.9) 02/25/17 07:55 RDW 12.6 % (11.9-15.9) 02/25/17 07:55 Plt Count 154 K/MM3 (134-434) 02/25/17 07:55 MPV 9.1 fl (7.5-11.1) 02/25/17 07:55 CMP Sodium 135 mmol/L (136-145) L 02/25/17 07:55 Potassium 4.1 mmol/L (3.5-5.1) 02/25/17 07:55 Chloride 100 mmol/L (98-107) 02/25/17 07:55 Carbon Dioxide 27 mmol/L (21-32) 02/25/17 07:55 Anion Gap 8 (8-16) 02/25/17 07:55 BUN 8 mg/dL (7-18) D 02/25/17 07:55 Creatinine 0.7 mg/dL (0.7-1.3) 02/25/17 07:55 Creat Clearance w eGFR > 60 (>60) 02/25/17 07:55 Calcium 8.4 mg/dL (8.5-10.1) L 02/25/17 07:55 Total Bilirubin 1.2 mg/dL (0.2-1.0) H D 02/25/17 07:55 AST 79 U/L (15-37) H 02/25/17 07:55 ALT 82 U/L (12-78) H 02/25/17 07:55 Alkaline Phosphatase 78 U/L (45-117) 02/25/17 07:55 Total Protein 7.7 g/dl (6.4-8.2) 02/25/17 07:55 Albumin 3.9 g/dl (3.4-5.0) 02/25/17 07:55 CT head reviewed ASSESSMENT/PLAN: 41 year old male with a significant past medical history of ETOH abuse, diabetes mellitus and uncontrolled hypertension. Patient arrived to the ED with right facial palsy. His and patient also report that patient drinks approximately "a bottle of whisky" per day and sometimes more. stated that patient drinks all day and often gets drunk daily. He denies any seizures and denies any symptoms of withdrawal at this time, minor anxiety on exam, but no tremors, headaches or hallucinations. Patient completed CT head which did not show acute changes. Ordered for MRI brain but states he gets claustraphobic and isn't agreeing to sedative. Would like to rule out CVA and discussed repeat CT and patient and agreed. Patient also had uncontrolled hypertension with 180/100s on presentation. Goal BP < 140/90 Lipitor also started for hyperlipidemia. Discussed using eye patch, Maintain moisture to avoid corneal abrasion. Discussed steroid course and patient hesitant due to history of DM. Consider Acyclovir Etoh cessation recommended Monitor for withdrawal Discussed with patient and Otherwise neurologically stable
[2017-02-25] MEDS ORDERED: amLODIPine BESYLATE 5 MG TABLET (FP) PO ONE (14:15)
[2017-02-25] MEDS ORDERED: amLODIPine BESYLATE 5 MG TABLET (FP) PO SCH (18:15)
[2017-02-25] MEDS ORDERED: ATORVASTATIN CA 40 MG TABLET (FP) PO SCH ×2 (22:00)
[2017-02-25] MEDS ORDERED: INSULIN DETEMIR 100 UNITS/ML MDV SQ SCH (22:00)
[2017-02-25] MEDS ORDERED: INSULIN (NOVOLOG) ASPART 100 UNITS/ML 10ML VIAL ONE (22:28)
[2017-02-26] MEDS: INSULIN SLIDING SCALE (NOVOLOG) 1 VIAL SQ SCH ×2 (06:51→12:24)
[2017-02-26] MEDS ORDERED: INSULIN (NOVOLOG) ASPART 100 UNITS/ML 10ML VIAL ONE ×3 (06:57→13:55)
[2017-02-26] MEDS ORDERED: INSULIN DETEMIR 100 UNITS/ML MDV SQ ONE (06:57)
[2017-02-26 08:05] LABS: ANION GAP 6 (8-16); BILIRUBIN,TOTAL 1.2 mg/dL (0.2-1.0); CALCIUM 8.3 mg/dL (8.5-10.1); CHOLESTEROL 220 mg/dL (50-200); CO2 30 mmol/L (21-32); CREATININE 0.8 mg/dL (0.7-1.3); GLUCOSE,RANDOM 227 mg/dL (74-106); SGOT/AST 51 U/L (15-37); SGPT/ALT 77 U/L (12-78)
[2017-02-26 08:06] LABS: ALK PHOS 81 U/L (45-117); TOT PROT 7.8 g/dl (6.4-8.2)
--- NOTE | 2017-02-26 08:31 | DS ---
Physical Examination Vital Signs: Vital Signs Temperature 98.6 F 02/26/17 06:00 Pulse Rate 81 02/26/17 06:00 Respiratory Rate 81 H 02/26/17 06:00 Blood Pressure 130/87 02/26/17 06:00 O2 Sat by Pulse Oximetry (%) 97 02/25/17 21:00 Findings/Remarks: patient seen and examined today Feels okay Wants to go home Denies chest pain or shortness of breath Blood pressure better Started on amlodipine. Constitutional: Yes: No Distress, Calm Eyes: Yes: Conjunctiva Clear Neck: Yes: Supple Cardiovascular: Yes: Regular Rate and Rhythm Respiratory: Yes: CTA Bilaterally Gastrointestinal: Yes: Normal Bowel Sounds, Soft Edema: No Neurological: Yes: Alert, Pre-Existing Deficit Labs: CBC, BMP 02/25/17 07:55 02/26/17 07:15 Discharge Summary Reason For Visit: FACIAL PALSY Current Active Problems Accelerated essential hypertension (Acute) Alcohol abuse (Acute) Diabetes (Acute) Elevated liver enzymes (Acute) Facial palsy (Acute) Hyperlipidemia (Acute) Obesity (Acute) Right-sided Ambrose's palsy (Acute) Hospital Course: admitted for--right facial weakness Diagnosed with Mabrose's palsy seen by neurology ultrasound carotid negative CT head negative 2 Patient refuses prednisone/Medications Also noted to have uncontrolled blood pressure and blood sugar high also compliance is an issue Patient also drinks heavily No shaking today last drink about 5 days ago I suggested he should go to rehabilitation ultrasound liver--fatty infiltration of liver Mild elevation of LFTs started on Statins also--due to hyperlipidemia Will discharge today Patient to follow with neurology as outpatient Also advised to follow-up with his PMD tomorrow--get his sugar checked as well as blood pressure Patient in agreement Medications reconciled and prescribed as needed Discussed with nursing staff Discharge time--35 minutes--in examining documenting as well as coordinating care. 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
--- NOTE | 2017-02-26 09:55 | PN ---
Progress Note (short form) - Note Progress Note: Neurology HISTORY OF PRESENT ILLNESS: Patient is a 41 year old male with a significant past medical history of ETOH abuse, diabetes mellitus and uncontrolled hypertension. Patient arrived to the ED with right facial palsy. His and patient also report that patient drinks approximately "a bottle of whisky" per day and sometimes more. stated that patient drinks all day and often gets drunk daily. He denies any seizures and denies any symptoms of withdrawal at this time, minor anxiety on exam, but no tremors, headaches or hallucinations. Patient completed CT head which did not show acute changes, repeated to confirm no infarct and was also without changes. Patient also had uncontrolled hypertension with 180/100s on presentation, improved. Lipitor also started for hyperlipidemia. 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 Discussed using eye patch. Maintain moisture to avoid corneal abrasion. Discussed steroid course yesterday and patient hesitant due to history of DM. For discharge today, neurologically stable. Active Medications Amlodipine Besylate (Norvasc -) 10 mg PO DAILY [facility] Amlodipine Besylate (Norvasc -) 5 mg PO DAILY [facility] Last Admin: 02/25/17 18:31 Dose: 5 mg Aspirin (Ecotrin -) 81 mg PO DAILY [facility] Last Admin: 02/25/17 10:12 Dose: 81 mg Atorvastatin Calcium (Lipitor -) 40 mg PO HS [facility] Last Admin: 02/25/17 23:00 Dose: 40 mg Chlordiazepoxide HCl (Librium -) 50 mg PO Q6H PRN PRN Reason: etoh withdrawal Enalapril Maleate (Vasotec -) 10 mg PO DAILY [facility] Last Admin: 02/25/17 10:13 Dose: 10 mg Folic Acid (Folic Acid -) 1 mg PO DAILY [facility] Last Admin: 02/25/17 10:12 Dose: 1 mg Insulin Aspart (Novolog Vial Sliding Scale -) 1 vial SQ ACHS [facility] PRN Reason: Protocol Last Admin: 02/26/17 06:51 Dose: 4 units Insulin Detemir (Levemir Vial) 10 units SQ HS [facility] Last Admin: 02/25/17 23:00 Dose: 10 units Lorazepam (Ativan Injection -) 1 mg IVPUSH Q6H PRN PRN Reason: ANXIETY Thiamine HCl (Vitamin B1 -) 100 mg PO DAILY [facility] Last Admin: 02/25/17 10:14 Dose: 100 mg PHYSICAL EXAMINATION Vital Signs Period Temp Pulse Resp BP Sys/Manning Pulse Ox Last 24 Hr 98.2 F-98.6 F 81-93 18-81 130-159/87-106 97 GENERAL: Awake, alert, and fully oriented, in no acute distress. HEAD: Right facial palsy, no numbness on exam EYES: Pupils equal, round and reactive to light, extraocular movements intact, sclera anicteric, conjunctiva clear. No lid lag. EARS, NOSE, THROAT: Ears normal, nares patent, oropharynx clear without exudates. Moist mucous membranes. NECK: Normal range of motion, supple without lymphadenopathy, JVD, or masses. LUNGS: Breath sounds equal, clear to auscultation bilaterally. No wheezes, and no crackles. No accessory muscle use. HEART: Regular rate and rhythm, normal S1 and S2 without murmur, rub or gallop. ABDOMEN: Soft, nontender, not distended, normoactive bowel sounds, no guarding, no rebound, no masses. No hepatomegaly or splenomegaly. MUSCULOSKELETAL: Normal range of motion at all joints. No bony deformities or tenderness. No CVA tenderness. UPPER EXTREMITIES: 2+ pulses, warm, well-perfused. No cyanosis. No clubbing. No peripheral edema. LOWER EXTREMITIES: 2+ pulses, warm, well-perfused. No calf tenderness. No peripheral edema. NEUROLOGICAL: R facial palsy, otherwise CN intact, sensory normal, strenght normal PSYCHIATRIC: Cooperative. Good eye contact. Appropriate mood and affect. SKIN: Warm, dry, normal turgor, no rashes or lesions noted, normal capillary refill. CBCD WBC 6.0 K/mm3 (4.0-10.0) 02/25/17 07:55 RBC 4.85 M/mm3 (4.00-5.60) 02/25/17 07:55 Hgb 16.4 GM/dL (11.7-16.9) 02/25/17 07:55 Hct 47.8 % (35.4-49) 02/25/17 07:55 MCV 98.4 fl (80-96) H 02/25/17 07:55 MCHC 34.4 g/dl (32.0-35.9) 02/25/17 07:55 RDW 12.6 % (11.9-15.9) 02/25/17 07:55 Plt Count 154 K/MM3 (134-434) 02/25/17 07:55 MPV 9.1 fl (7.5-11.1) 02/25/17 07:55 CMP Sodium 137 mmol/L (136-145) 02/26/17 07:15 Potassium 4.0 mmol/L (3.5-5.1) 02/26/17 07:15 Chloride 101 mmol/L (98-107) 02/26/17 07:15 Carbon Dioxide 30 mmol/L (21-32) 02/26/17 07:15 Anion Gap 6 (8-16) L 02/26/17 07:15 BUN 12 mg/dL (7-18) D 02/26/17 07:15 Creatinine 0.8 mg/dL (0.7-1.3) 02/26/17 07:15 Creat Clearance w eGFR > 60 (>60) 02/26/17 07:15 Calcium 8.3 mg/dL (8.5-10.1) L 02/26/17 07:15 Total Bilirubin 1.2 mg/dL (0.2-1.0) H 02/26/17 07:15 AST 51 U/L (15-37) H D 02/26/17 07:15 ALT 77 U/L (12-78) 02/26/17 07:15 Alkaline Phosphatase 81 U/L (45-117) 02/26/17 07:15 Total Protein 7.8 g/dl (6.4-8.2) 02/26/17 07:15 Albumin 4.0 g/dl (3.4-5.0) 02/26/17 07:15 CT head reviewed ASSESSMENT/PLAN: 41 year old male with a significant past medical history of ETOH abuse, diabetes mellitus and uncontrolled hypertension. Patient arrived to the ED with right facial palsy. His and patient also report that patient drinks approximately "a bottle of whisky" per day and sometimes more. stated that patient drinks all day and often gets drunk daily. He denies any seizures and denies any symptoms of withdrawal at this time, minor anxiety on exam, but no tremors, headaches or hallucinations. Patient completed CT head which did not show acute changes. CT repeated and reviewed, no acute changes Patient also had uncontrolled hypertension with 180/100s on presentation. Goal BP < 140/90, improved with medication Lipitor also started for hyperlipidemia. Discussed using eye patch, Maintain moisture to avoid corneal abrasion. Discussed steroid course and patient hesitant due to history of DM. Consider Acyclovir Etoh cessation recommended Monitor for withdrawal Otherwise neurologically stable For discharge today
[2017-02-26] MEDS ORDERED: amLODIPine BESYLATE 10 MG TABLET (FP) PO SCH (10:00)
--- NOTE | 2017-02-26 10:11 | CONSULT ---
Admitting History and Physical - Primary Care Physician PCP: Nathan Yip - Admission History of Present Illness: Per EMR: 41 year old male with a significant past medical history of ETOH abuse, diabetes mellitus and uncontrolled hypertension. Patient arrived to the ED with right facial palsy. His and patient also report that patient drinks approximately "a bottle of whisky" per day and sometimes more. stated that patient drinks all day and often gets drunk daily. He denies any seizures and denies any symptoms of withdrawal at this time, minor anxiety on exam, but no tremors, headaches or hallucinations. Patient completed CT head which did not show acute changes. CT repeated and reviewed, no acute changes Pt reports he had left severe facial weakness when he was 19 y.o. which improved. History Source: Patient, Family Member Limitations to Obtaining History: No Limitations - Smoking History Smoking history: Never smoked Have you smoked in the past 12 months: No - Alcohol/Substance Use Hx Alcohol Use: Yes (daily) History - Admission Reason For Visit: FACIAL PALSY - Diagnostics X-ray: Report Reviewed CT Scan: Report Reviewed - General Mental Status: Alert and Oriented, Awake and Alert, Able to Follow Commands Attention: Intact Ability to Follow Directions: Excellent Head/Neck Control: WFL - Hearing Hearing: Functional Speech Evaluation - Communication Primary Language: LITHUANIAN Communication: Yes: Within Normal Limits Oral Expression Ability: Yes: No Impairment - Speech Production Able to Make Needs Known: Yes: WNL Intelligibility: Yes: WNL - Speech Characteristics Voice Loudness: Normal Voice Pitch: Yes: Normal Voice Phonatory-based Quality: Yes: Normal Speech Pattern: Normal Nasal Resonance: Normal Articulation: Yes: Precise (slight imprecision) Rate of Speech: Intact - Language/Auditory Comprehension Follows: Yes: 2 Stage Simple Commands - Language/Verbal Expression Able to Respond to Simple Queries: Yes: WNL Able to Communicate Wants and Needs: Yes: WNL Functional Communication Status: Yes: WNL - Memory/Perception intermediate card tender Memory: Yes: WNL Short Term Memory: Yes: WNL - Swallow Evaluation/Bedside Assessment Current Nutritional Intake: Regular, Thin Liquids Oral Secretions: Yes: WFL Dentition: Yes: Adequate Facial Symmetry at Rest: Facial Droop Right (mild) Facial Symmetry on Retraction: Facial Droop Right (mild, including impaired ability to close right eye, c/w ambrose's palsy) Pucker Lips: Droops Right Smile: Droops Right Lingual Movement: Symmetric Lingual Speed of Movement: Normal Lingual Movement Strgth Against Opposition: Normal Lingual Movement Characteristics: Normal Velopharyngeal Movement: Normal Laryngeal Elevation: WFL Laryngeal Movement: Able to Palpate Bolus Size: WFL Labial Seal: Impaired Right (drools while drinking) Chewing: WFL Oral Prep Time: WFL A-P Transit: WFL Pocketing: None Timing of Swallow: WFL Coughing/Throat Clear: No Change in Voice: No Recommendations - Speech Evaluation, Impression/Plan Impression: mild right facial weakness, including impaired ability to close right eye, c/w Ambrose's Palsy. CT head x 2 (-) - Dysphagia Impressions/Plan Swallowing Skills: WFL Dysphagia Impressions: Mild Impairment (drooling from right side while drinking) *Silent aspiration: cannot be R/O at bedside Dysphagia Treatment Plan: Labial Exercises, Other (ome provided. Straw usage to eliminate drooling) - Recommendations Diet Consistency: Regular Liquids: Thin Liquids
[2017-02-26 11:02] VITALS: TEMP 98.7
[2017-02-26] MEDS: THIAMINE HCL 100 MG TABLET (FP) PO SCH (11:04)
[2017-02-26] MEDS: ASPIRIN COATED 81 MG TABLET.EC PO SCH (11:05)
[2017-02-26] MEDS: ENALAPRIL MALEATE 10 MG TABLET (FP) PO SCH (11:05)
[2017-02-26] MEDS: FOLIC ACID 1 MG TABLET (FP) PO SCH (11:05)
[2017-02-26 12:23] VITALS: BP 143/106
[2017-02-26 13:19] VITALS: PULSE 103
--- NOTE | 2017-02-27 01:41 | EKG ---
Test Reason : Blood Pressure : / mmHG Vent. Rate : 090 BPM Atrial Rate : 090 BPM P-R Int : 168 ms QRS Dur : 096 ms QT Int : 368 ms P-R-T Axes : 042 -15 005 degrees QTc Int : 450 ms NORMAL SINUS RHYTHM NORMAL ECG WHEN COMPARED WITH ECG OF 01-MAY-2016 04:37, NO SIGNIFICANT CHANGE WAS FOUND Confirmed by CELE MAYS MD ([id number]) on 02/27/2017 1:40:51 AM Referred By: Confirmed By:CELE MAYS MD
[2017-02-28 14:17] LABS: HBeAG Negative (Negative); HEP BE AB Negative (Negative)
== END 2017-02-26 14:13 | disposition home or self-care (01) | DRG 74 ==
LOC: JER 14:21 → JERBED 18:10 → J5S 21:59
PROVIDERS: ADMIT Internal Medicine; ATTEND Internal Medicine
PROC: HZ2ZZZZ Detoxification Services for Substance Abuse Treatment (ICD-10-PCS; principal; 2017-02-24)
DX: G51.0 Bell's palsy (principal); I10 Essential (primary) hypertension; E11.9 Type 2 diabetes mellitus without complications; F10.10 Alcohol abuse, uncomplicated; R74.8 Abnormal levels of other serum enzymes; E66.8 Other obesity; Z68.36 Body mass index [BMI] 36.0-36.9, adult; E78.5 Hyperlipidemia, unspecified
CPT/HCPCS: 36415; 70450-TC; 76705-TC; 80053; 80061; 80307; 81003; 82465; 82550; 82553; 83036; 83718; 83721; 83735; 84478; 84484; 85025; 85027; 85610; 86704; 86705; 86707; 86803; 86850; 86900; 86901; 87340; 87350; 93005; 93010; 93880-TC; 99285-25